=== PATIENT | female | born 1995 | race Two or more races ===

== ENCOUNTER 2024-02-25 15:38 | Emergency (ER) | payer MEDICAID ==
[~2024-02-25] VITALS: Ht 160 cm; Wt 85.4 kg
--- NOTE | 2024-02-25 15:53 | ED.PDOC ---
History of Present Illness HPI Comments 28-year-old female who comes in with chief complaint of abdominal pain as well as some vaginal bleeding. The patient states that she is approximately 13 weeks and started with three days of bleeding as well as some pain today. She states that she is having epigastric pain as well as some right lower quadrant pain. She does not have an OBGYN as of now. Time Seen by MD: 15:40 Reviewed Notes: Nurses Notes, [employer] Tile Setter Notes, Medications, Allergies (No allergies to medications) Allergies: Coded Allergies: NO KNOWN ALLERGIES (Unverified , 02/25/24) Information Source: Patient Mode of Arrival: Ambulatory Severity: Mild Timing: Days Duration: Since onset Prehospital treatment: None Location: Epigastric pain as well as some right lower quadrant pain Associated signs and symptoms Vaginal bleeding Past Medical History PAST MEDICAL HISTORY: Denies Surgical History: Denies all surgeries PARTS CHASER History: No Pertinent PARTS CHASER History Family History Family History: Family hx of heart stanley Social History Smoker: Non-Smoker Alcohol: Occasionally Drugs: Denies Drug Use Lives In: Home Constitutional: denies: chills, diaphoresis, fatigue, fever, malaise, sweats, weakness, others EENTM: denies: blurred vision, double vision, ear bleeding, ear discharge, ear drainage, ear pain, ear ringing, eye pain, eye redness, hearing loss, mouth pain, mouth swelling, nasal discharge, nose bleeding, nose congestion, nose pain, photophobia, tearing, throat pain, throat swelling, voice changes, others Respiratory: denies: cough, hemoptysis, orthopnea, SOB at rest, shortness of breath, SOB with excertion, stridor, wheezing, others Cardiovascular: denies: chest pain, dizzy spells, diaphoresis, Dyspnea on exertion, edema, irregular heart beat, left arm pain, lightheadedness, palpitations, PND, syncope, others Gastrointestinal: reports: abdominal pain; denies: abdomen distended, blood streaked bowels, constipated, diarrhea, dysphagia, difficulty swallowing, hematemesis, melena, nausea, poor appetite, poor fluid intake, rectal bleeding, rectal pain, vomiting, others Genitourinary: reports: abnormal vagina bleeding, pain, ; denies: burning, dyspareunia, dysuria, flank pain, frequency, hematuria, incontinence, vagina discharge, urgency, others Neurological: denies: dizziness, fainting, headache, left sided numbness, left sided weakness, numbness, paresthesia, pre-existing deficit, right sided numbness, right sided weakness, seizure, speech problems, tingling, tremors, weakness, others Musculoskeletal: denies: back pain, gout, joint pain, joint swelling, muscle pain, muscle stiffness, neck pain, others Integumetry: denies: bruises, change in color, change in hair/nails, dryness, laceration, lesions, lumps, rash, wounds, others Allergic/Immunocompromised: denies: Difficulty Healing, Frequent Infections, Hives, Itching, others Hematologic/Lymphatic: denies: anemia, blood clots, easy bleeding, easy bruising, swollen glands, others Endocrine: denies: excessive hunger, excessive sweating, excessive thirst, excessive urination, flushing, intolerance to cold, intolerance to heat, unexplained weight gain, unexplained weight loss, others Psychiatric: denies: anxiety, bipolar disorder, depression, hopeless, panic disorder, schizophrenia, sleepless, suicidal, others Physical Exam General Appearance: Mild Distress HEENT: Normal ENT Inspection, Pharynx Normal, TMs Normal Neck: Full Range of Motion, Non-Tender, Normal, Normal Inspection Respiratory: Chest Non-Tender, Lungs Clear, No Accessory Muscle Use, No Respiratory Distress, Normal Breath Sounds Cardiovascular: No Edema, No JVD, No Murmur, No Gallop, Normal Peripheral Pulses, Regular Rate/Rhythm Breast Exam: Deferred Gastrointestinal: Epigastric, No Organomegaly, No Pulsatile Mass, Normal Bowel Sounds, Soft, Tenderness, Other (Gravid uterus) Genitalia: Deferred Pelvic: Deferred Rectal: Deferred Extremities: No calf tenderness, Normal capillary refill, Normal inspection, Normal range of motion, Non-tender, No pedal edema Musculoskeletal : Apperance: Normal Neurologic: Alert, gas main fitter II-XII nml as Tested, No Motor Deficits, Normal Affect, Normal Mood, No Sensory Deficits Cerebellar Function: Normal Reflexes: Normal Skin: Dry, Normal Color, Warm Lymphatic: No Adenopathy Was a procedure done? Was a procedure done?: No Differential Dx Considerations may include: Threatened , ectopic , UTI, demise X-Ray, Labs, Meds, VS Vital Signs Date Time Temp Pulse Resp B/P (MAP) Pulse Ox O2 Delivery O2 Flow Rate FiO2 12/3/24 17:10 98.0 107 17 107/68 (81 97 Lab Test 02/25/24 16:01 Range/Units Beta HCG, Quantitative 29406.6 H 1.5-4.2 mIU/mL Ultrasound of the pelvis shows: IMPRESSION: It shows a 13 week six day intrauterine with normal heart tones At this time the [place] [address] Images Reviewed?: Images reviewed and evaluated by me Time of 1ST Reevaluation: 15:53 Reevaluation 1ST: Unchanged Patient Education/Counseling: Diagnosis, Treatment, Prognosis, Need For Follow Up Family Education/Counseling: No Family Present Departure 1 Departure Time of Disposition: 18:06 Impression: Primary Impression: Threatened Disposition: 01 HOME / SELF CARE / HOMELESS Condition: Fair Discharged With: Self Critical Care Note Critical Care Time?: No Stability Stability form required: No Heart Score Heart Score: Heart Score Response (Comments) Value History N/A 0 EKG N/A 0 Age N/A 0 Risk Factors N/A 0 Troponin N/A 0 Total 0 DEVANTE VIZCARRA MD Feb 25, 2024 15:53
--- NOTE | 2024-02-25 17:54 | DVH ---
OBSTETRIC ULTRASOUND PRIOR TO 14 WEEKS CLINICAL INDICATION: PAIN vaginal spotting TECHNIQUE: Multiple grayscale ultrasound images were obtained of the pelvis via transabdominal appro ach for obstetric evaluation. Limited color Doppler and spectral Doppler acquisitions were also obtai genoveva. COMPARISON: None FINDINGS: Uterus: 14.8 x 8.4 x 5.8 cm. There is a single intrauterine gestational sac is visualized. A po le is visualized measuring 7.9 cm compatible with an estimated gestational age of 13 weeks, 6 days. cardiac activity is present with heart rate of 151 beats per minute. Early placenta is anterior Right adnexa: right ovary 2.4 x 1.3 x 2.7 cm. Normal arterial blood flow in the ovary. No right adne xal mass seen. Left adnexa: left ovary 2.0 x 1.2 x 2.8 cm. Normal arterial blood flow in the ovary. No left adnexal mass seen. Other: None IMPRESSION: Single intrauterine with an estimated gestational age of 13 weeks, 6 days, corresponding to an estimated date of delivery of 08/26/2024.
--- NOTE | 2024-02-25 18:19 | DVH ---
ABDOMINAL ULTRASOUND CLINICAL HISTORY: Abdominal pain TECHNIQUE: Multiple grayscale and color Doppler ultrasound images were obtained of the abdomen. WID: COMPARISON: None FINDINGS: Liver and Biliary System: Homogeneous echotexture, normal size measuring 14.6 cm. No focal hepatic observations. No intrahepatic bile duct dilatation. The common duct measures 0.3 cm at the jamshid h epatis. The gallbladder is normal caliber and contains cholelithiasis and sludge. Mild gallbladde r wall thickening measuring 3.8 mm. Pancreas: Visualized portions are unremarkable. Kidneys: The right kidney is 10.7 cm . No hydronephrosis, increased echogenicity, shadowing stone, or focal lesion. IMPRESSION: Gallbladder filled with sludge and gallstones and borderline wall thickening. Sonographic gibson's si gn is negative and the gallbladder appears normal-size. Overall findings are indeterminate at this ti tn for acute cholecystitis. Clinical follow-up recommended.
[2024-02-25 18:41] VITALS: BP 121/71; PULSE 79; RESP 16; TEMP 98.7; O2SAT 99
[2024-02-25 18:46] LABS: Urine Bacteria FEW /hpf (None Seen); Urine Blood Negative /uL (Negative); Urine Clarity Turbid (Clear); Urine Color Yellow (Yellow); Urine Mucus FEW (None Seen); Urine Protein, UAD TRACE (Negative); Urine Specific Gravity 1.023 (1.001-1.035); Urine Urobilinogen 4 mg/dL (Negative); Urine WBC 61 /hpf (0 - 5)
== END 2024-02-25 18:52 | disposition home or self-care (01) ==
LOC: ER 15:38
DX: O20.0 Threatened abortion (principal); Z3A.13 13 weeks gestation of pregnancy
CPT/HCPCS: 36415; 76705; 76801; 81001; 84702